=== PATIENT | female | born 1965 | race Two or more races ===

== ENCOUNTER 2020-06-03 05:14 | Day surgery (SDC) | payer BC ==
--- NOTE | 2020-05-30 11:07 | Opthalmology H&P ---
Ophthalmology H&P H&P Chief Complaint: decreased vision in left eye HPI Vision Affects Ability to: read, drive, manage personal affairs HPI Narrative Blurry vision Exam Visual Acuity: OD 20/60 OS 20/60 Tension: OD 19 OS 20 Eye Exam: normal OU: external exam, palpebral fissure-width, marginal reflex distance, levator function, corneas, anterior chambers, fundus exam; findings: lens - NS/CC Cataracts OU Assessment/Plan Treatment Plan: cataract extraction w/ lens implant Goals of Treatment: improvement of vision, enhance quality of life Attestation Attestation The risks and benefits of the surgery as well as alternative procedures were explained to the patient in detail. Gagan Johnston MD May 30, 2020 11:07
--- NOTE | 2020-05-30 11:09 | Pre-Procedure Note/Attestation ---
Pre-Procedure Note/Attestation Complete Prior to Procedure Planned Procedure: left Procedure Narrative: Cataract extraction with IOL implant left eye Indications for Procedure Pre-Operative Diagnosis: Nuclear sclerotic/ cortical cataract left eye Attestation I attest that I discussed the nature of the procedure; its benefits; risks and complications; and alternatives (and the risks and benefits of such alternatives), prior to the procedure, with the patient (or the patient's legal sales representative printing). I attest that, if there was a reasonable possibility of needing a blood transfusion, the patient (or the patient's legal sales representative printing) was given the [facility] standardized written summary, pursuant to the [employer] Blood Safety Act ([place] Health and Safety Code # 1645, as amended). I attest that I re-evaluated the patient just prior to the surgery and that t here has been no change in the patient's H&P, except as documented below: Gagan Johnston MD May 30, 2020 11:08
[2020-06-03] VITALS (8 sets, daily range): BP systolic 126–146; BP diastolic 73–83
[~2020-06-03] VITALS: Ht 163 cm; Wt 73.0 kg
[~2020-06-03 05:14] MED LIST: ATORVASTATIN CA40 MG ORAL; BIOTIN2500 MCG PO; IBUPROFEN600 M1 ORAL; JANUVIA25 MG ORAL; METFORMIN HCL500 M1 ORAL; MINOXIDIL2.5 MG PO; OMEGA 3 1,0001 EACH PO; TRAMADOL HCL50 MG ORAL; VITAMIN C500 M1 ORAL; VITAMIN E1000 UNI4 PO; ZINC50 MG ORAL; vitamin D PO
[2020-06-03] MEDS: Diclofenac Sod 0.1% Op Soln LEFT EYE SCH ×3 (05:44→06:06)
[2020-06-03] MEDS: Tropicamide 1% Opth 15ml Soln LEFT EYE SCH ×3 (05:44→06:06)
[2020-06-03] MEDS: Tobramycin Op Soln 0.3% 5ml LEFT EYE SCH ×3 (05:45→06:06)
[2020-06-03] MEDS: Phenylephrine 10% Opth Soln 5ml LEFT EYE SCH ×3 (05:45→06:06)
[2020-06-03] MEDS ORDERED: Akten 3.5% 1ml Btl LEFT EYE ONE (07:00)
[2020-06-03] MEDS ORDERED: Maxitrol Opth Oint 3.5gm ONE (07:00)
[2020-06-03] MEDS ORDERED: Proparacaine 0.5% Opth Soln 15ml LEFT EYE ONE (07:00)
[2020-06-03] MEDS ORDERED: prednisoLONE acetate 1% Opth Susp 1ml ONE (07:00)
[2020-06-03] MEDS ORDERED: Pilocarpine 1% Opth 15ml Soln ONE (07:00)
[2020-06-03] MEDS ORDERED: Tetracaine 0.5% Opth 4ml Soln LEFT EYE ONE (07:00)
[2020-06-03] MEDS ORDERED: Lidocaine 4% Amp 5ml ONE (07:15)
[2020-06-03] MEDS ORDERED: EPINEPHrine 1mg/1ml Amp ONE (07:15)
[2020-06-03] MEDS ORDERED: BSS 15ml BTL ONE (07:16)
[2020-06-03] MEDS ORDERED: BSS 500ml btl ONE (07:16)
[2020-06-03] MEDS ORDERED: acetaZOLAMIDE 500mg Inj ONE (07:16)
[2020-06-03] MEDS ORDERED: Lidocaine 1% MPF 10mg/ml 5ml ONE ×2 (07:16→07:30)
[2020-06-03] MEDS ORDERED: Carbachol 0.01% Op Soln 1.5ml vial ONE (07:16)
[2020-06-03] MEDS ORDERED: Povidone-Iodine 5% opth solution ONE (07:17)
[2020-06-03] MEDS ORDERED: Bupivacaine 0.75% 30ml vial INJ ONE (07:17)
[2020-06-03] MEDS ORDERED: Sodium Hyaluronate 10 mg/ml 0.85ml ONE (07:17)
[2020-06-03] MEDS ORDERED: LR 1000ml ONE (07:30)
[2020-06-03] MEDS ORDERED: NS Irrig 1000ml ONE (07:30)
[2020-06-03] MEDS ORDERED: Sterile Water Irrig 1000ml IRRIG ONE (07:30)
[2020-06-03] MEDS ORDERED: Meperidine 25mg/1ml Inj (FOR RIGORS ONLY) IV PRN (08:00)
[2020-06-03] MEDS ORDERED: Midazolam 2mg/2ml Inj IVP PRN (08:00)
[2020-06-03] MEDS ORDERED: DiphenhydrAMINE 50mg/ml Inj IVP PRN (08:00)
[2020-06-03] MEDS ORDERED: Ketorolac 30mg Inj IV PRN ×2 (08:00)
[2020-06-03] MEDS ORDERED: HYDROcodone/Acetamin 7.5/325 tab ORAL PRN (08:00)
[2020-06-03] MEDS ORDERED: fentaNYL 100 mcg/2 mL IV PRN (08:00)
[2020-06-03] MEDS ORDERED: LR 1000ml 1,000 ML IVLG SCH (08:00)
[2020-06-03] MEDS ORDERED: HYDROcodone/Acetamin 5/325 tab ORAL PRN (08:00)
[2020-06-03] MEDS ORDERED: LORazepam Inj 2mg/ml 1ml IV PRN (08:00)
[2020-06-03] MEDS ORDERED: oxyCODONE HCL/Acetaminophen 5/325mg ORAL PRN (08:00)
[2020-06-03] MEDS ORDERED: Atropine Sulfate 0.4mg/ml inj IVP PRN (08:00)
[2020-06-03] MEDS ORDERED: Metoclopramide 10mg/2ml Inj IVP PRN (08:00)
[2020-06-03] MEDS ORDERED: Labetalol 5mg/ml 20ml vial IV PRN (08:00)
[2020-06-03] MEDS ORDERED: Hydromorphone 0.5mg/0.5ml inj IVP PRN (08:00)
--- NOTE | 2020-06-03 08:01 | Anethesia Preoperative Eval ---
Anesthesia Pre-op PMH/ROS General Date of Evaluation: Jun 03, 2020 Time of Evaluation: 07:31 Anesthesiologist: Thomas ASA Score: ASA 3 Mallampati Score Class I : Soft palate, uvula, fauces, pillars visible Class II: Soft palate, uvula, fauces visible Class III: Soft palate, base of uvula visible Class IV: Only hard plate visible Mallampati Classification: Class II Surgeon: Vickie Diagnosis: Cataract OS Surgical Procedure: Cat Ext IOL OS Anesthesia History: none Family History: no anesthesia problems Allergies: Coded Allergies: No Known Allergies (Unverified , 05/30/20) Medications: see eMAR Patient NPO?: Yes Past Medical History Cardiovascular: Reports: HTN, other - HL Neurologic/Psychiatric: Reports: depression/anxiety Endocrine: Reports: DM Musculoskeletal/Integumentary: Reports: OA Anesthesia Pre-op Phys. Exam Physician Exam Last Vital Signs Date Time Temp Pulse Resp B/P (MAP) Pulse Ox O2 Delivery O2 Flow Rate FiO2 06/03/20 05:46 97.1 105 18 146/79 98 Room Air Constitutional: NAD Neurologic: CN 2-12 intact Cardiovascular: RRR Respiratory: CTA Gastrointestinal: S/NT/ND Airway Exam Mallampati Score: Class II MO: full ROM: limited Teeth: missing, intact Anesthesia Pre-op A/P Risk Assessment & Plan Assessment: ASA 3 Plan: 1 Status Change Before Surgery: Sebastian Delacruz MD Jun 03, 2020 08:01
--- NOTE | 2020-06-03 08:15 | Immediate Post-Op Evaluation ---
Immediate Post-Op Evalulation Immediate Post-Op Evalulation Procedure: Cat Ext IOL OS Date of Evaluation: Jun 03, 2020 Time of Evaluation: 09:14 IV Fluids: 800 LR Blood Products: 0 Estimated Blood Loss: 1 Urinary Output: 0 Blood Pressure Systolic: 146 Blood Pressure Diastolic: 82 Pulse Rate: 97 Respiratory Rate: 16 O2 Sat by Pulse Oximetry: 98 Temperature (Fahrenheit): 97.6 Pain Score (1-10): 1 Nausea: No Vomiting: No Complications 0 Patient Status: awake, reacts, patent, none Hydration Status: adequate Sebastian Guzman MD Jun 03, 2020 08:15
--- NOTE | 2020-06-03 08:16 | 48 Hour Post Anesthesia Eval ---
Post Anesthesia Evaluation Procedure: Cat Ext IOL OS Date of Evaluation: Jun 03, 2020 Time of Evaluation: 11:21 Blood Pressure Systolic: 149 0: 84 Pulse Rate: 99 Respiratory Rate: 18 Temperature (Fahrenheit): 98 O2 Sat by Pulse Oximetry: 98 Airway: patent Nausea: No Vomiting: No Pain Intensity: 1 Hydration Status: adequate Cardiopulmonary Status: Stable Mental Status/LOC: patient returned to baseline Follow-up Care/Observations: 0 Post-Anesthesia Complications: 0 Follow-up care needed: ready to discharge Sebastian Guzman MD Jun 03, 2020 08:16
[2020-06-03] MEDS ORDERED: Midazolam 2mg/2ml Inj ONE ×2 (08:18→08:36)
--- NOTE | 2020-06-05 09:13 | Brief Operative Note ---
Immediate Post Operative Note Operative Note Chief Complaint: Blurry vision Pre-op Diagnosis: Nuclear sclerotic/ cortical cataract left eye Procedure: Cataract extraction with IOL implant left eye Post-op Diagnosis: Pseudophakia OS Findings: consistent w/pre-op dx studies Surgeon: Gagan Johnston MD Anesthesiologist: Sebastian Guzman MD Anesthesia: MAC Specimen: none Complications: none Condition: stable Fluids: LR Estimated Blood Loss: none Drains: none Implant(s) used?: Yes - IOL-OS Gagan Johnston MD Jun 05, 2020 09:13
--- NOTE | 2020-06-05 09:18 | Operative Note - PDOC ---
Operative Note Operative Note Date of Operation/Procedure: Jun 03, 2020 Chief Complaint: Blurry vision Pre-op Diagnosis: Nuclear sclerotic/ cortical cataract left eye Procedure: Cataract extraction with IOL implant left eye Post-op Diagnosis: Pseudophakia OS Operative Findings: consistent w/pre-op dx studies Surgeon: Gagan Johnston MD Anesthesiologist: Sebastian Guzman MD Anesthesia: MAC Specimen: none Complications: none Condition: stable Fluids: LR Estimated Blood Loss: none Drains: none Implant(s) used?: Yes - IOL-OS Indications for Procedure Nuclear sclerotic cataract left eye Description of Procedure This patient has been complaining visually significant cataract in the left eye with the best corrected visual acuity of 20/50 under moderate glare conditions worse. The patient complains of difficulties with glare in performing activities of daily living and wants to manage personal affairs with comfort and accuracy and see well enough to move with safety at home and outdoors. The risks, benefits and alternatives of the procedure were discussed with the patient in the office prior to scheduling surgery. All questions from the patient were answered after the surgical procedure was explained in detail. The risks of the procedure as explained to the patient include, but are not limited to, pain, infection, bleeding, loss of vision, retinal detachment, need for further surgery, loss of lens nucleus, double vision, etc. Alternative procedur es were discussed which include, to do nothing or seek a second opinion. Informed consent for this procedure was obtained from the patient. The patient was referred to a primary care physician for a cardiopulmonary clearance prior to surgery, after proper evaluation was done patient was properly scheduled for outpatient surgery. The patient was brought to the operating room where the anesthesiologist established I.V. lines and cardiac monitoring leads. Mild intravenous sedation was administered. The patient was then prepared with a 5% solution of povidone-iodine to the conjunctival fornix and lashes, and a 5% solution of povidone-iodine to the lids and periorbital skin. The patient was then draped in the usual sterile fashion. A lid speculum was then placed in the operative eye. A keratome blade was then used to create a biplanar incision into the anterior chamber. Viscoelastics was then instilled into the anterior chamber. A capsulorrhexis was then fashioned with an utrata forceps A G 27 cannula was used to hydrodissect and hydro delineate the lens nucleus. Paracentesis incision was made at 3 o'clock with sharp blade. The phacoemulsification unit, after being properly adjusted and tested, was then used to emulsify the nucleus followed by aspiration and irrigation of residual cortical material. Healon was then instilled into the anterior chamber. The corneal wound was then enlarged to the size of the optic with the tremaine keratome blade. The intraocular lens was then inspected for right power and size and thought to be satisfactory. Then the lens was gently placed in the capsular bag. Positioning within the capsular bag was confirmed by direct visualization. Optic centration was accomplished with a Sinskey hook. Viscoelastics was removed from the anterior chamber using the irrigation and aspiration unit. The corneal wound was then tested for leaks and none were found. The lid speculum were then removed. Sponge and needle counts were correct. An eye patch and shield were placed over the operative eye. The patient was taken to the recovery room in stable condition. There were no complications. The patient tolerated the procedure well. The patient was then transferred to the ambulatory surgery unit in stable and satisfactory condition, was given detailed written instructions and asked to follow up in the office the next day. Gagan Johnston MD Jun 05, 2020 09:18
== END 2020-06-03 10:15 | disposition home or self-care (01) ==
LOC: SUR 05:14
DX: H25.12 Age-related nuclear cataract, left eye (principal); H25.012 Cortical age-related cataract, left eye; I10 Essential (primary) hypertension; E11.9 Type 2 diabetes mellitus without complications; F32.9 Major depressive disorder, single episode, unspecified; F41.9 Anxiety disorder, unspecified; M19.90 Unspecified osteoarthritis, unspecified site
CPT/HCPCS: 94003; 94150; J2250